=== PATIENT | female | born 1960 | race Caucasian/White ===

== ENCOUNTER → 2016-09-29 | Outpatient (CLI) | payer OTHER ==
[~2016-09-29] MED LIST: DIAZEPAM PO; ESTRACE2 MG PO; HYDROCODON-ACE1 EAC5 PO; KEFLEX PO; LORTAB 10/500 T1 TAB PO; NAPROXEN250 MG PO; PRAVASTATIN SOD40 MG PO; PREDNISONE PO; SILVADENE TOP; TIZANIDINE HCL4 M1 PO; [UNRECOGNIZED DRUG - REMARK]
--- NOTE | ~2016-09-29 | US24 ---
[facility] A Service of [facility] RADIOLOGY TEXT RESULTS PATIENT: KOLBY GARCIA LOCATION: [facility] : 64 UNIT #: [id number] AGE: [address]: CHANCE CARMONA APRN SEX: F ORDER DR: [id number] [facility] [address] [place], [place] [address] [id number] O MR#: [id number] Acc #: [id number] NAME: KOLBY GARCIA. : 1960 SEX: F STUDY DATE/TIME: 09/29/2016 16:04 UNIT: [facility] ROOM: STUDY DESCRIPTION: US Breast Unilateral Attending Physician: Domenico Snow Ordering Physician: Physician Non-Staff Primary Care Physician: Domenico Snow MEDICAL IMAGING REPORT This report is preliminary unless electronic signature is present EXAM Diagnostic right axillary ultrasound. Date: 09/29/2016 HISTORY Complains of palpable abnormality right axilla for 1.5 weeks ago, but cannot feel it today. COMPARISON Bilateral diagnostic mammogram 09/29/2016. Bilateral screening mammogram 08/16/2015 and 06/09/2014 FINDINGS Targeted sonographic imaging was performed of the right axilla, site of the patient's palpable complaint. Please refer to the diagnostic mammogram report from the same day for a full description of mammographic and sonographic findings and recommendations. IMPRESSION BIRADS 1. Negative diagnostic ultrasound of the right axilla. Please refer to the diagnostic mammogram report from the same day for full description mammographic and sonographic findings and recommendations. Dictated by... Germaine Clemente M.D. THIS IS AN ELECTRONICALLY VERIFIED REPORT Germaine Clemente M.D. at 10/04/2016 8:44 AM PAULETTE/kevan TD: 09/29/2016 23:47 [facility] A Service of [facility] RADIOLOGY TEXT RESULTS PATIENT: KOLBY GARCIA LOCATION: [facility] : 64 UNIT #: [id number] AGE: [address]: CHANCE CARMONA APRN SEX: F ORDER DR: JOB #: [id number] MEDICAL IMAGING REPORT Page 1 of 1 COPY
--- NOTE | ~2016-09-29 | MY6 ---
[facility] A Service of [facility] RADIOLOGY TEXT RESULTS PATIENT: KOLBY AGRCIA LOCATION: [facility] : 64 UNIT #: [id number] AGE: [address]: CHANCE CARMONA APRN SEX: F ORDER DR: [id number] [facility] [address] [place], [place] [address] [id number] O MR#: [id number] Acc #: [id number] NAME: KOLBY GARCIA. : 1960 SEX: F STUDY DATE/TIME: 09/29/2016 15:32 UNIT: [facility] ROOM: STUDY DESCRIPTION: MY Mammogram Dx Dig [place] Attending Physician: Domenico Snow Ordering Physician: Domenico Snow Primary Care Physician: Domenico Snow MEDICAL IMAGING REPORT This report is preliminary unless electronic signature is present EXAM Bilateral digital diagnostic mammogram with CAD 09/29/2016 HISTORY Patient states palpable abnormality in the right axilla approximately 1.5 weeks ago which has subsequently resolved. Patient states it was palpable on physician physical examination. COMPARISON [facility] screening mammogram 08/16/2015, 06/09/2014. FINDINGS CC and MLO views were obtained of each breast and true ML views of the right breast utilizing digital technique and reviewed a FDA-approved CAD device. Heterogeneously dense fibroglandular tissue is present bilaterally. Fibronodular density within the upper outer right breast central third is unchanged from prior examinations in keeping with benign finding. No new or suspicious nodule, architectural distortion microcalcification is seen. Benign-appearing lymph nodes are seen over each axillary region superimposed over the pectoral muscles, unchanged from previous screening studies. Although the patient has no focal target abnormality on today's mammogram, and she is unable to localize focal palpable abnormality in axilla today, she strongly wished to undergo diagnostic right axillary ultrasound and we complied with her wishes. Normal appearing right axillary lymph nodes are demonstrated. No focal suspicious cystic or solid nodule is identified. IMPRESSION BIRADS 2. Benign findings. There is no mammographic or sonographic [facility] A Service of [facility] RADIOLOGY TEXT RESULTS PATIENT: KOLBY GARCIA LOCATION: [facility] #: [id number] : 64 UNIT #: [id number] AGE: [address]: CHANCE CARMONA APRN SEX: F ORDER DR: abnormality to correspond to patient's previous palpable complaint in the right axilla. Only benign appearing right axillary lymph nodes are seen. Nodule within the central third right breast upper outer quadrant is unchanged from prior examinations and is in keeping with a benign finding. Any further management regarding patient's right axillary complaints should be based on clinical assessment. Findings and recommendations were discussed with patient today in the radiology department. BIRADS: 2 Benign Finding. Patients over the age of 40 are entered into a reminder system with target due date for the next mammogram. A result letter will also be sent to the patient. Dictated by... Germaine Clemente M.D. THIS IS AN ELECTRONICALLY VERIFIED REPORT Germaine Clemente M.D. at 10/04/2016 8:44 AM PAULETTE/ric TD: 09/29/2016 23:52 JOB #: [id number] MEDICAL IMAGING REPORT Page 1 of 1 COPY
== END | disposition home or self-care (01) ==
LOC: CMAM 15:00
DX: R22.2 Localized swelling, mass and lump, trunk (principal); N63 Unspecified lump in breast
CPT/HCPCS: 76641; G0204